=== PATIENT | male | born 1960 | race Caucasian/White ===

== ENCOUNTER → 2021-08-20 | Outpatient (CLI) | payer OTHER ==
[~2021-08-20] MED LIST: ADVIL200 M1 PO
[2021-08-20 12:26] LABS: HEMOGLOBIN 13.2 gm/dl (14.0-17.5); RED BLOOD COUNT 4.4 M/UL (4.20-5.50); WHITE BLOOD COUNT 5.6 K/UL (4.5-11.0)
[2021-08-20 12:44] LABS: BUN/CREATININE RATIO 19 (0-10)
== END ==
LOC: OPSV2 11:30
PROVIDERS: Orthopaedic Surgery
DX: Z01.818 Encounter for other preprocedural examination (principal); M16.11 Unilateral primary osteoarthritis, right hip
CPT/HCPCS: 36415; 80048; 85027; 93005

== ENCOUNTER → 2021-08-29 | Outpatient (CLI) | payer OTHER ==
[~2021-08-29] MED LIST changes: +ASPIRIN EC81 MG PO; +CELEBREX 200MG200 MG PO; +CYCLOBENZAPRINE10 MG PO; +ENDOCET 7.5-321 EACH PO; +ZOFRAN 4 MG TAB4 MG PO
[2021-08-29 16:28] LABS: BUN/CREATININE RATIO 16 (0-10)
== END ==
LOC: LAB 14:22
PROVIDERS: Orthopaedic Surgery
DX: Z01.812 Encounter for preprocedural laboratory examination (principal); M16.11 Unilateral primary osteoarthritis, right hip
CPT/HCPCS: 36415; 80048; 86850; 86900; 86901

== ENCOUNTER 2021-08-30 05:37 | Day surgery (SDC) | payer OTHER ==
[~2021-08-30] VITALS: Ht 180.3 cm; Wt 70.3 kg
[~2021-08-30 05:37] MED LIST changes: -ASPIRIN EC81 MG PO; -CELEBREX 200MG200 MG PO; -CYCLOBENZAPRINE10 MG PO; -ENDOCET 7.5-321 EACH PO; -ZOFRAN 4 MG TAB4 MG PO
[2021-08-30] MEDS ORDERED: CYCLOBENZAPRINE10 MG PO (08:22)
[2021-08-30] MEDS ORDERED: CELEBREX 200MG200 MG PO (08:22)
[2021-08-30] MEDS ORDERED: ASPIRIN EC81 MG PO (08:22)
[2021-08-30] MEDS ORDERED: ZOFRAN 4 MG TAB4 MG PO (08:22)
[2021-08-30] MEDS ORDERED: ENDOCET 7.5-321 EACH PO (08:22)
== END 2021-08-31 15:00 | disposition home health service (06) ==
LOC: OR 05:37 → EDSTATUS 10:45 → OR 10:45 → M/S 17:43 → OR 08-31 15:00
PROVIDERS: Orthopaedic Surgery
DX: M16.0 Bilateral primary osteoarthritis of hip (principal); M25.851 Other specified joint disorders, right hip; G89.18 Other acute postprocedural pain; F17.210 Nicotine dependence, cigarettes, uncomplicated; Z88.0 Allergy status to penicillin
CPT/HCPCS: 73501; 73502; 76000; 85014; 85018; 97116-GP-CQ; 97161; 97166; 97530-GP-CQ; 97535; C1713; C1776; J0690; J1100; J1170; J1644; J1885; J2001; J2250; J2405; J2704; J2795; J3010; J3370; J7030; J7050; J7120

== ENCOUNTER → 2021-11-14 | Outpatient (CLI) | payer OTHER ==
[~2021-11-14] MED LIST changes: +ASPIRIN EC81 MG PO; +CELEBREX 200MG200 MG PO; +CYCLOBENZAPRINE10 MG PO; +ENDOCET 7.5-321 EACH PO; +ZOFRAN 4 MG TAB4 MG PO
[2021-11-14 11:51] LABS: HEMOGLOBIN 12.7 gm/dl (14.0-17.5); RED BLOOD COUNT 4.29 M/UL (4.20-5.50); WHITE BLOOD COUNT 6.3 K/UL (4.5-11.0)
== END ==
LOC: OPSV2 10:44
PROVIDERS: Orthopaedic Surgery
DX: Z01.818 Encounter for other preprocedural examination (principal); M16.12 Unilateral primary osteoarthritis, left hip
CPT/HCPCS: 36415; 71046; 80048; 85027; 93005

== ENCOUNTER → 2021-11-26 | Outpatient (CLI) | payer OTHER ==
[~2021-11-26] MED LIST changes: +ENDOCET 10-3251 EACH PO
[2021-11-26 07:37] LABS: BUN/CREATININE RATIO 21 (0-10)
== END ==
LOC: LAB 06:55
PROVIDERS: Orthopaedic Surgery
DX: Z01.812 Encounter for preprocedural laboratory examination (principal); Z20.822 Contact with and (suspected) exposure to COVID-19
CPT/HCPCS: 36415; 80048; 86850; 86900; 86901; U0003

== ENCOUNTER 2021-11-27 05:36 | Day surgery (SDC) | payer OTHER ==
[~2021-11-27] VITALS: Ht 180.3 cm; Wt 69.9 kg
[~2021-11-27 05:36] MED LIST changes: -ENDOCET 10-3251 EACH PO
[2021-11-28 02:55] LABS: HEMOGLOBIN 9.5 gm/dl (14.0-17.5); RED BLOOD COUNT 3.2 M/UL (4.20-5.50); WHITE BLOOD COUNT 12.5 K/UL (4.5-11.0)
[2021-11-28 03:52] LABS: BUN/CREATININE RATIO 21 (0-10)
[2021-11-28] MEDS ORDERED: CYCLOBENZAPRINE10 MG PO (13:02)
[2021-11-28] MEDS ORDERED: ENDOCET 10-3251 EACH PO (13:02)
[2021-11-28] MEDS ORDERED: ASPIRIN EC81 MG PO (13:02)
[2021-11-28] MEDS ORDERED: ZOFRAN 4 MG TAB4 MG PO (13:02)
== END 2021-11-28 13:05 | disposition home health service (06) ==
LOC: OR 05:36 → EDSTATUS 07:30 → OR 10:30 → M/S 12:52 → OR 11-28 13:05
PROVIDERS: Orthopaedic Surgery
DX: M16.12 Unilateral primary osteoarthritis, left hip (principal); M25.752 Osteophyte, left hip; F17.210 Nicotine dependence, cigarettes, uncomplicated; Z20.822 Contact with and (suspected) exposure to COVID-19; Z96.641 Presence of right artificial hip joint; Z79.82 Long term (current) use of aspirin
CPT/HCPCS: 36415; 73501; 73502; 76000; 80048; 85027; 97116; 97116-GP-CQ; 97161; 97166; 97535; C1713; C1776; J0690; J1100; J1170; J1200; J1644; J2250; J2274; J2370; J2405; J2704; J2710; J3370; J3475; J7030; J7050; J7120